=== PATIENT | male | born 1970 | race Caucasian/White ===

== ENCOUNTER → 2019-09-08 08:31 | Outpatient (CLI) | payer OTHER ==
[~2019-09-08 08:31] MED LIST: ALBUTEROL SULF8.5 GM INH; CLEOCIN HCL300 MG PO; CYCLOBENZAPRINE10 MG PO; ULTRAM50 MG PO
== END | disposition home or self-care (01) ==
LOC: D.RT 08:30
PROVIDERS: ATTEND Pediatrics
DX: Z02.71 Encounter for disability determination (principal)

== ENCOUNTER 2019-10-04 14:24 | Emergency (ER) | payer OTHER ==
[~2019-10-04] VITALS: Ht 182.9 cm; Wt 114.5 kg
[2019-10-04 15:08] VITALS: Ht 182.9 cm; Wt 114.5 kg
[2019-10-04] MEDS ORDERED: ALBUTEROL SULF8.5 GM INH (15:10)
[2019-10-04] MEDS ORDERED: CYCLOBENZAPRINE10 MG PO (15:10)
[2019-10-04] MEDS ORDERED: ULTRAM50 MG PO (17:18)
[2019-10-04] MEDS ORDERED: CLEOCIN HCL300 MG PO (17:18)
[2019-10-04 17:42] VITALS: BP 134/75
== END 2019-10-04 17:43 | disposition home or self-care (01) ==
LOC: D.ER 14:24
DX: L03.113 Cellulitis of right upper limb (principal)

== ENCOUNTER 2021-04-25 09:01 | Emergency (ER) | payer OTHER ==
[~2021-04-25] VITALS: Ht 182.9 cm; Wt 118.2 kg
[2021-04-25 09:06] VITALS: BP 143/87; Ht 182.9 cm; Wt 118.2 kg
[2021-04-25] MEDS ORDERED: IBUPROFEN800 MG PO (10:15)
== END 2021-04-25 10:45 ==
LOC: D.ER 09:01
DX: M25.512 Pain in left shoulder (principal); J44.9 Chronic obstructive pulmonary disease, unspecified; Z72.0 Tobacco use; V89.2XXA Person injured in unspecified motor-vehicle accident, traffic, initial encounter; Y93.9 Activity, unspecified; Y92.9 Unspecified place or not applicable